=== PATIENT | male | born 1950 | race Caucasian/White ===

== ENCOUNTER → 2018-11-21 | Outpatient (CLI) | payer OTHER, MEDICARE ==
[~2018-11-21] MED LIST: GAVISCON LIQUI355 ML; VASOTEC2.5 MG
--- NOTE | 2018-11-23 12:07 | PATH ---
[facility] [place] [address] PATHOLOGY RPT PROCEDURE Name: STEPHON PARKER Room #: REG [facility] M.R.#: [id number] ������������������ Admission: 11/21/18 ������������������ Date of : 48 Discharge: Report #: [id number] Path Case #: [id number] [facility] Accession Number: [id number] . 01 Material submitted: . PART A: BX OF DUODENUM PART B: BX RANDOM GASTRIC PART C: BX ESOPHAGEAL PART D: BX POLYP AT HEPATIC FLEXURE X2 PART E: BX POLYP AT TRANSVERSE COLON X3 PART F: BX POLYP AT SIGMOID X2 . 01 Clinical history: . GERD, screening Duodenitis, esophagitis, esophageal ulcer, colon polyps A: Rule out infectious duodenitis B: Rule out H. pylori . 02 Diagnosis: A. Small bowel mucosa, duodenum, endoscopic biopsy: - Focal fundic-type metaplasia associated with marked active duodenitis. - Moderate to marked villous blunting present (please see comment). - Negative for dysplasia. . B. Gastric mucosa, random gastric rule out H. pylori, endoscopic biopsy: - Features of mild reactive gastropathy. - Negative for intestinal metaplasia or atrophy. - Negative for Helicobacter pylori (properly controlled immunohistochemical stain performed). . C. Squamous mucosa, esophageal ulcer/erosion, endoscopic biopsy: - Acute esophagitis associated with features of reflux esophagitis. - Focal fibrotic lamina propria, compatible within the vicinity of an ulcer. - Negative for intestinal metaplasia or dysplasia. . D. Polyp x 2, at hepatic flexure, endoscopic biopsy: - Tubular adenoma identified in multiple fragments. - Negative for high grade dysplasia. . E. Polyp x 3, at transverse colon, endoscopic biopsy: - One fragment showing tubular adenoma without high grade dysplasia. - Remainder of fragments showing reactive hyperplastic changes without any dysplasia. . F. Polyp x 2, at sigmoid, endoscopic biopsy: - Multiple fragments showing tubular adenoma without high grade dysplasia. - One fragment showing hyperplastic polyp without dysplasia. [facility] [address] [place] [address] PATHOLOGY RPT PROCEDURE Name: STEPHON PARKER Room #: REG [facility].#: [id number] ������������������ Admission: 11/21/18 ������������������ Date of : 48 Discharge: Report #: [id number] Path Case #: [id number] LBQ/11/22/2018 . 02 Comment: Examination of the "duodenum" biopsy tissue shows a markedly expanded lamina propria with a lymphoplasmacytic infiltrate. The surface epithelium shows fundic-type metaplasia associated with abundant acute and chronic inflammation. Significant (relative) increase of intraepithelial lymphocytes is not identified. Villous blunting is present; however, can be seen with acute duodenitis. Overall, findings are suggestive of moderate to marked active peptic duodenitis. Viral inclusions, Giardia-like organisms, or other parasitic organisms are not identified. Please correlate clinically. (IUV/db; 11/22/2018) . 02 Electronically signed: . Laurita Little MD, Pathologist NPI- [id number] . 01 Gross description: . A. The specimen is received in formalin, labeled "Casterline, Stephon, BX duodenum" and consists of 5 fragments of pink-clay tissue measuring 1.3 x 0.5 x 0.3 cm in aggregate which are entirely submitted in A1. . B. The specimen is received in formalin, labeled "Casterline, Stephon, random gastric BX" and consists of multiple fragments of soft clay tissue measuring 1.9 x 0.5 x 0.3 cm in aggregate which are entirely submitted in B1. . C. The specimen is received in formalin, labeled "Casterline, Stephon, BX esophageal erosion/ulcer" and consists of 4 fragments of translucent joaquin-clay tissue measuring between 0.3 x 0.1 cm and 0.3 x 0.3 x 0.1 cm. They are entirely submitted in C1. . D. The specimen is received in formalin, labeled "Casterline, Stephon, BX polyp hepatic flexure x2" and consists of 5 fragments of soft clay tissue measuring 0.9 x 0.5 x 0.2 cm in aggregate which are entirely submitted in D1. . E. The specimen is received in formalin, labeled "Casterline, Stephon, BX polyp transverse colon x3" and consists of multiple fragments of clay tissue measuring 1.4 x 0.5 x 0.2 cm in aggregate which are entirely submitted in E1. . F. The specimen is received in formalin, labeled "Casterline, Stephon, BX polyp at sigmoid x2" and consists of multiple fragments of clay tissue measuring 1.2 x 1.0 x 0.2 cm in aggregate which are entirely submitted in F1. [facility] [address] [place] [address] PATHOLOGY RPT PROCEDURE Name: STEPHON PARKER Room #: REG [facility].#: [id number] ������������������ Admission: 11/21/18 ������������������ Date of : 48 Discharge: Report #: [id number] Path Case #: [id number] (SDY; 11/21/2018) SYU/SYU . 02 Pathologist provided ICD-10: K29.80, K31.9, K21.0, K22.10, D12.3, D12.5 . 02 CPT . 013917, 625114, 981858, 753758, 683162, 991512, W46914 Specimen Comment: A courtesy copy of this report has been sent to Specimen Comment: [phone], , . Specimen Comment: Report sent to ,DR CANO / DR WAYNE Performed at: [address] [facility], [place] [id number] MD Harshad Holcomb MD Phone: [phone] Performed at: [address] [facility] [address] [facility], [place], [place] [id number] MD Laurita Little MD Phone: [phone]
== END | disposition home or self-care (01) ==
LOC: GI 06:56
DX: Z12.11 Encounter for screening for malignant neoplasm of colon (principal); Z80.0 Family history of malignant neoplasm of digestive organs; D12.3 Benign neoplasm of transverse colon; D12.5 Benign neoplasm of sigmoid colon; D12.2 Benign neoplasm of ascending colon; K63.5 Polyp of colon; K29.80 Duodenitis without bleeding; K31.9 Disease of stomach and duodenum, unspecified; K21.0 Gastro-esophageal reflux disease with esophagitis; K22.10 Ulcer of esophagus without bleeding; K31.89 Other diseases of stomach and duodenum; M10.9 Gout, unspecified; Z98.890 Other specified postprocedural states; Z88.8 Allergy status to other drugs, medicaments and biological substances; Z79.899 Other long term (current) drug therapy
CPT/HCPCS: 62110; 62900

== ENCOUNTER 2019-12-22 15:38 | Inpatient (IN) | payer OTHER, MEDICARE ==
[~2019-12-22] VITALS: Ht 177.8 cm; Wt 77.1 kg
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
[2019-12-22 15:38] VITALS: BP 129/73
[2019-12-22] MEDS ORDERED: OMEPRAZOLE40 MG PO (15:42)
[2019-12-22] MEDS ORDERED: HYDROCHLOROTHIA25 M2 PO (15:43)
[2019-12-22] MEDS ORDERED: ACYCLOVIR 400400 MG PO (15:45)
[2019-12-22 17:41] VITALS: BP 157/79
[2019-12-22 17:55] LABS: HEMATOCRIT 44.2 % (42.0-52.0); HEMOGLOBIN 15.1 gm/dL (14.0-18.0); MCH 31.7 pg (26.0-34.0); MCHC 34.1 g/dL (28.0-37.0); RBC 4.75 mil/uL (4.50-6.00); RDW 14.1 % (10.5-14.5); WBC 11.9 thou/uL (4.0-11.0)
[2019-12-22 18:08] LABS: CALCIUM 7.7 mg/dL (8.5-10.1); CREATININE 1.4 mg/dL (0.7-1.3); POTASSIUM 3.7 mmol/L (3.5-5.1)
[2019-12-22 18:09] LABS: APTT 29.1 Seconds (24.5-32.8); INR 1.2; PROTIME 12.4 Seconds (9.3-11.4)
[2019-12-22 18:14] LABS: ALBUMIN 3.7 g/dL (3.4-5.0); TOTAL PROTEIN 6.6 g/dL (6.4-8.2)
[2019-12-22 18:26] VITALS: BP 162/95
[2019-12-22 18:40] LABS: TSH 1.868 uIU/mL (0.358-3.740)
[2019-12-22 19:10] VITALS: BP 154/89
[2019-12-23] VITALS (9 sets, daily range): BP systolic 118–154; BP diastolic 63–93
--- NOTE | 2019-12-23 09:56 | EKG ---
[facility] [place] [address] [place] [address] ELECTROCARDIOGRAM REPORT Name: STEPHON PARKER Room #: 442-P ADM IN M.R.#: [id number] Admission: 12/22/19 Attend Phys: Toy Chaudhari MD Discharge: Date of : 48 Report #: [id number] THIS REPORT FOR: cc: Chon Lucio MD, Rene P. MD Park, Jin S. 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 : 1950 Requested By: Levar Centeno Order Number: [id number] MD: Óscar Jang Measurements Intervals Watson Rate: 72 P: 53 WI: 141 QRS: -29 QRSD: 88 T: 35 QT: 382 QTc: 419 Interpretive Statements Sinus rhythm Probable left atrial enlargement Borderline left axis deviation Abnormal R-wave progression, early transition Compared to ECG 08/18/2013 06:03:37 No significant changes Electronically Signed On 12-23-2019 9:54:43 CDT by Óscar Jang [email or web address] <ELECTRONICALLY SIGNED> By: Óscar Jang MD 12/23/19 0954 [id number] Óscar Jang MD /EPI
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
--- NOTE | 2019-12-23 11:05 | O ---
[facility] [place] [address] [address] OPERATIVE REPORT Name: STEPHON PARKER Room #: 442-P ADM IN M.R.#: [id number] Admission: 12/22/19 Attend Phys: Toy Chaudhari MD Discharge: Date of : 48 Report #: [id number] THIS REPORT FOR: cc: Chon Lucio MD, Rene P. MD Rizzi, Raymond M. DPM ~ CC: Toy Lucio DATE OF SERVICE: 12/22/2019 PREOPERATIVE DIAGNOSIS: Right ankle fracture dislocated. POSTOPERATIVE DIAGNOSIS: Right ankle fracture dislocated. PROCEDURE PERFORMED: Closed reduction of right ankle. ANESTHESIA: Local, approximately 12 mL of 0.5% Marcaine. TOURNIQUET: None. DESCRIPTION OF PROCEDURE: The patient was seen in the ER and was blocked with the local block and then reduced by increasing the deformity and then lengthening and putting it back in place. It lengthened out the foot nicely and took pressure off the ankle, and I was able to put a posterior splint on and did this without minimal pain to the patient. <ELECTRONICALLY SIGNED> By: Pablo Sanchez DPM 12/23/19 1105 1948 20 Pablo Sanchez, TAMMY /nt
[2019-12-23] MEDS ORDERED: GAVISCON TABLE1 EACH PO (16:57)
[2019-12-23] MEDS ORDERED: PERCOCET 5-3251 EACH PO (17:07)
[2019-12-23 17:56] LABS: HEMATOCRIT 40.7 % (42.0-52.0); HEMOGLOBIN 13.9 gm/dL (14.0-18.0); MCH 31.8 pg (26.0-34.0); MCHC 34.1 g/dL (28.0-37.0); MCV 93.3 fL (80.0-100.0); RBC 4.36 mil/uL (4.50-6.00); RDW 14.3 % (10.5-14.5); WBC 7.9 thou/uL (4.0-11.0)
[2019-12-23 18:12] LABS: CALCIUM 8.3 mg/dL (8.5-10.1); CREATININE 1.2 mg/dL (0.7-1.3); POTASSIUM 4.5 mmol/L (3.5-5.1)
== END 2019-12-23 19:15 | disposition home or self-care (01) | DRG 493 ==
LOC: ER 15:38 → EROBS 17:33 → 4S 18:26
PROVIDERS: Emergency Medicine; ADMIT Internal Medicine
PROC: 0QSG05Z Reposition Right Tibia with External Fixation Device, Open Approach (ICD-10-PCS; principal; 2019-12-23)
DX: S82.851A Displaced trimalleolar fracture of right lower leg, initial encounter for closed fracture (principal); N17.9 Acute kidney failure, unspecified; Z88.1 Allergy status to other antibiotic agents; K21.9 Gastro-esophageal reflux disease without esophagitis; I12.9 Hypertensive chronic kidney disease with stage 1 through stage 4 chronic kidney disease, or unspecified chronic kidney disease; N40.0 Benign prostatic hyperplasia without lower urinary tract symptoms; N18.3 Chronic kidney disease, stage 3 (moderate); Z28.21 Immunization not carried out because of patient refusal; V89.2XXA Person injured in unspecified motor-vehicle accident, traffic, initial encounter; Y93.89 Activity, other specified; Y92.89 Other specified places as the place of occurrence of the external cause; Y99.8 Other external cause status
CPT/HCPCS: 10102; 50101; 50386; 51597; 51793; 51826; 52060; 57091; 62110; 62900; 70005

== ENCOUNTER → 2021-08-08 | Outpatient (CLI) | payer OTHER ==
[~2021-08-08] MED LIST changes: +ACYCLOVIR 400400 MG PO; +GAVISCON TABLE1 EACH PO; +HYDROCHLOROTHIA25 M2 PO; +OMEPRAZOLE40 MG PO; +PERCOCET 5-3251 EACH PO
== END | disposition home or self-care (01) ==
LOC: ULTRA 12:37
PROVIDERS: ATTEND Nurse Practitioner
DX: R22.1 Localized swelling, mass and lump, neck (principal)